=== PATIENT | female | born 1995 | race Caucasian/White ===

== ENCOUNTER 2016-07-11 11:28 | Outpatient (CLI) | payer MEDICAID ==
[~2016-07-11] VITALS: Ht 162.6 cm; Wt 96.8 kg
[~2016-07-11 11:28] MED LIST: AMOXICILLIN 8751 TAB PO; CLARITIN 1010 MG/TAB PO; FLAGYL500 MG PO; NORCO 325 MG-51 TAB PO; PERCOCET 325 MG1 TA3 PO; PRENATAL; SINGULAIR 110 MG/TAB PO
[2016-07-11 11:44] VITALS: BP 130/84; PULSE 78; TEMP 98
[2016-07-11] MEDS ORDERED: VENTOLIN0.09 MG IH (11:50)
[2016-07-11 12:00] VITALS: BP 130/84; PULSE 78
[2016-07-11 13:07] VITALS: BP 131/78; PULSE 98
[2016-07-11 14:03] VITALS: BP 127/79; PULSE 94
== END 2016-07-11 14:20 | disposition home or self-care (01) ==
LOC: LDRO 11:28
DX: O47.1 False labor at or after 37 completed weeks of gestation (principal); Z3A.38 38 weeks gestation of pregnancy; O99.213 Obesity complicating pregnancy, third trimester; O24.419 Gestational diabetes mellitus in pregnancy, unspecified control; Z87.891 Personal history of nicotine dependence

== ENCOUNTER 2016-07-12 06:27 | Inpatient (IN) | payer MEDICAID ==
[~2016-07-12] VITALS: Ht 162.6 cm; Wt 96.8 kg
[2016-07-12] VITALS (24 sets, daily range): BP systolic 106–147; BP diastolic 56–87; PULSE 67–104; TEMP 97.6–98.1
[~2016-07-12 06:27] MED LIST changes: +VENTOLIN0.09 MG IH
[2016-07-12 08:04] LABS: BASO % 0.2 % (0.0-2.0); EOS % 0.2 % (0-4.0); GRAN # 6.5 (1.4-6.5); GRAN % 75.1 % (42.2-75.2); HEMATOCRIT 37.2 % (37.0-47.0); HEMOGLOBIN 12.1 g/dl (12.5-16.0); LYMPH # 1.4 (1.2-3.4); LYMPH % 16.6 % (20.0-51.0); MEAN CELL VOLUME 91 fl (80.0-100.0); MEAN CORPUSCULAR HEMOGLOBIN 29 pg (27.0-31.0); MEAN CORPUSCULAR HGB CONC 33 g/dl (33.0-37.0); MONO # 0.6 (0.1-0.6); MONO % 7.4 % (1.7-9.3); PLATELET COUNT 193 K/mm3 (130-400); RED BLOOD COUNT 4.11 M/mm3 (4.10-5.30); REDCELL DISTRIBUTION WIDTH-CV 13.1 % (11.5-14.5); WHITE BLOOD COUNT 8.7 K/mm3 (4.8-10.8)
[2016-07-13 07:51] LABS: HEMATOCRIT 34.9 % (37.0-47.0); HEMOGLOBIN 11.2 g/dl (12.5-16.0)
[2016-07-13 09:00] VITALS: BP 109/56; PULSE 71; TEMP 97.6
[2016-07-13] MEDS ORDERED: IBU600 MG PO (09:20)
[2016-07-13] MEDS ORDERED: PERCOCET 325 MG1 TA2 PO (09:20)
[2016-07-13 12:32] VITALS: BP 117/81; PULSE 67; TEMP 97.4
== END 2016-07-13 15:15 | disposition home or self-care (01) | DRG 775 ==
LOC: LDRO 06:27 → LDR 06:48 → OB 14:20
PROVIDERS: Obstetrics & Gynecology
PROC: 10E0XZZ Delivery of Products of Conception, External Approach (ICD-10-PCS; principal; 2016-07-12)
PROC: 0KQM0ZZ Repair Perineum Muscle, Open Approach (ICD-10-PCS; 2016-07-12)
DX: O24.420 Gestational diabetes mellitus in childbirth, diet controlled (principal); O70.1 Second degree perineal laceration during delivery; Z3A.38 38 weeks gestation of pregnancy; Z37.0 Single live birth; Z23 Encounter for immunization
CPT/HCPCS: J2590; J7120

== ENCOUNTER → 2016-07-16 | Outpatient (CLI) | payer MEDICAID ==
[~2016-07-16] MED LIST changes: +CEFTIN500 MG PO; +IBU600 MG PO; +PERCOCET 325 MG1 TA2 PO
== END ==
LOC: LAC 10:11
DX: Z39.1 Encounter for care and examination of lactating mother (principal); Z71.89 Other specified counseling

== ENCOUNTER 2016-07-17 19:39 | Emergency (ER) | payer MEDICAID ==
[~2016-07-17] VITALS: Ht 162.6 cm; Wt 91.3 kg
[~2016-07-17 19:39] MED LIST changes: -CEFTIN500 MG PO
[2016-07-17 19:43] VITALS: BP 144/96; PULSE 75; TEMP 98
== END 2016-07-17 20:25 | disposition home or self-care (01) ==
LOC: COL.ER 19:39
DX: H10.89 Other conjunctivitis (principal); B99.9 Unspecified infectious disease

== ENCOUNTER 2017-03-21 18:06 | Emergency (ER) | payer MEDICAID ==
[~2017-03-21] VITALS: Ht 162.6 cm; Wt 85.0 kg
[2017-03-21 18:07] VITALS: BP 144/82; TEMP 98.9
[2017-03-21 19:01] LABS: PH 7 (5-8); SQUAMOUS EPITHELIAL 0-2 /hpf; URINE APPEARANCE Turbid; URINE BACTERIA Rare /hpf; URINE BILIRUBIN Negative (NEGATIVE); URINE BLOOD Negative (NEGATIVE); URINE COLOR Yellow; URINE GLUCOSE Negative (NEGATIVE); URINE KETONE Negative (NEGATIVE); URINE UROBILINOGEN Negative (NEGATIVE); URINE WBC >50 /hpf
[2017-03-21] MEDS ORDERED: CEFTIN500 MG PO (19:25)
[2017-03-21 19:39] VITALS: PULSE 68
== END 2017-03-21 19:40 | disposition home or self-care (01) ==
LOC: COL.ER 18:06
PROVIDERS: Nurse Practitioner
DX: N39.0 Urinary tract infection, site not specified (principal); B96.20 Unspecified Escherichia coli [E. coli] as the cause of diseases classified elsewhere; F17.210 Nicotine dependence, cigarettes, uncomplicated; Z87.440 Personal history of urinary (tract) infections

== ENCOUNTER 2017-06-02 09:47 | Emergency (ER) | payer MEDICAID ==
[~2017-06-02] VITALS: Ht 162.6 cm; Wt 81.8 kg
[~2017-06-02 09:47] MED LIST changes: +CEFTIN500 MG PO
[2017-06-02 09:53] VITALS: BP 142/81; PULSE 87; TEMP 98
[2017-06-02 10:40] LABS: COLLECTION METHOD CLEAN CATCH
[2017-06-02 10:54] LABS: PH 7 (5-8); SQUAMOUS EPITHELIAL 0-2 /hpf; URINE APPEARANCE Cloudy; URINE BACTERIA None Seen /hpf; URINE BILIRUBIN Negative (NEGATIVE); URINE BLOOD 2+ (NEGATIVE); URINE COLOR Yellow; URINE GLUCOSE Negative (NEGATIVE); URINE KETONE Negative (NEGATIVE); URINE LEUKOCYTE ESTERASE 3+ (NEGATIVE); URINE PROTEIN(semi-quant) 2+ (NEGATIVE); URINE RBC >50 /hpf; URINE UROBILINOGEN Negative (NEGATIVE)
[2017-06-02 10:56] LABS: URINE WBC >50 /hpf
[2017-06-02] MEDS ORDERED: MACROBID 1100 MG/CAP PO (11:01)
[2017-06-02] MEDS ORDERED: DIFLUCAN150 MG PO (11:02)
== END 2017-06-02 12:00 | disposition home or self-care (01) ==
LOC: COL.ER 09:47
PROVIDERS: Nurse Practitioner Primary Care
DX: N39.0 Urinary tract infection, site not specified (principal); J45.909 Unspecified asthma, uncomplicated; F17.210 Nicotine dependence, cigarettes, uncomplicated

== ENCOUNTER 2017-06-25 22:15 | Emergency (ER) | payer MEDICAID ==
[~2017-06-25] VITALS: Ht 162.6 cm; Wt 81.8 kg
[~2017-06-25 22:15] MED LIST changes: +DIFLUCAN150 MG PO; +MACROBID 1100 MG/CAP PO
[2017-06-25 22:18] VITALS: BP 141/74
[2017-06-25] MEDS ORDERED: PRENATAL (22:21)
[2017-06-25 22:44] LABS: COLLECTION METHOD CLEAN CATCH
[2017-06-25 22:51] LABS: MUCOUS Present /lpf; PH 6 (5-8); SQUAMOUS EPITHELIAL 0-2 /hpf; URINE APPEARANCE Clear; URINE BACTERIA None Seen /hpf; URINE BILIRUBIN Negative (NEGATIVE); URINE BLOOD 3+ (NEGATIVE); URINE COLOR Yellow; URINE GLUCOSE Negative (NEGATIVE); URINE KETONE Negative (NEGATIVE); URINE LEUKOCYTE ESTERASE Negative (NEGATIVE); URINE PROTEIN(semi-quant) Negative (NEGATIVE); URINE RBC >50 /hpf; URINE UROBILINOGEN Negative (NEGATIVE)
[2017-06-25 23:24] LABS: BASO # 0.1 (0.0-0.2); BASO % 0.7 % (0.0-2.0); EOS # 0.3 (0.0-0.7); EOS % 2.5 % (0-4.0); GRAN # 6.5 (1.4-6.5); GRAN % 60.9 % (42.2-75.2); HEMATOCRIT 36.5 % (37.0-47.0); HEMOGLOBIN 11.9 g/dl (12.5-16.0); LYMPH # 3.1 (1.2-3.4); LYMPH % 29.3 % (20.0-51.0); MEAN CELL VOLUME 95 fl (80.0-100.0); MEAN CORPUSCULAR HEMOGLOBIN 31 pg (27.0-31.0); MEAN CORPUSCULAR HGB CONC 33 g/dl (33.0-37.0); MONO # 0.7 (0.1-0.6); MONO % 6.2 % (1.7-9.3); PLATELET COUNT 269 K/mm3 (130-400); RED BLOOD COUNT 3.83 M/mm3 (4.10-5.30); WHITE BLOOD COUNT 10.7 K/mm3 (4.8-10.8)
[2017-06-25 23:37] LABS: ADJUSTED CALCIUM 8.9 mg/dL (8.4-10.2); ALANINE AMINOTRANSFERASE 32 U/L (9-52); ALBUMIN 4.4 gm/dL (3.5-5.0); ALKALINE PHOSPHATASE 57 U/L (50-136); ANION GAP 10 mmol/L (7-16); BILIRUBIN,TOTAL 0.4 mg/dL (0.0-1.0); BLOOD UREA NITROGEN 13 mg/dL (7-17); CALCIUM 9.2 mg/dL (8.4-10.2); CARBON DIOXIDE 26 mmol/L (22-30); CHLORIDE 105 mmol/L (98-107); CREATININE, serum 0.81 mg/dL (0.52-1.25); GLUCOSE 119 mg/dL (74-106); POTASSIUM 3.3 mmol/L (3.4-5.0); SODIUM 141 mmol/L (137-145); TOTAL PROTEIN 7.2 gm/dL (6.4-8.2)
[2017-06-25 23:38] LABS: C-REACTIVE PROTEIN < 0.5 mg/dL (0.0-0.9)
[2017-06-25 23:51] LABS: HCG,QUANTITATIVE 12 mIU/mL (0-5)
[2017-06-26 00:27] VITALS: PULSE 66; TEMP 98
== END 2017-06-26 00:32 | disposition home or self-care (01) ==
LOC: COL.ER 22:15
PROVIDERS: Nurse Practitioner
DX: O03.9 Complete or unspecified spontaneous abortion without complication (principal); J45.909 Unspecified asthma, uncomplicated; F17.210 Nicotine dependence, cigarettes, uncomplicated
CPT/HCPCS: J1170; J7030

== ENCOUNTER 2017-07-29 01:30 | Emergency (ER) | payer MEDICAID ==
[~2017-07-29] VITALS: Ht 162.6 cm; Wt 86.4 kg
[2017-07-29 01:36] VITALS: TEMP 97.9
[2017-07-29 02:06] LABS: COLLECTION METHOD CLEAN CATCH
[2017-07-29 02:12] LABS: MUCOUS Present /lpf; PH 5 (5-8); SQUAMOUS EPITHELIAL 0-2 /hpf; URINE APPEARANCE Clear; URINE BACTERIA Rare /hpf; URINE BILIRUBIN Negative (NEGATIVE); URINE BLOOD 2+ (NEGATIVE); URINE COLOR Amber; URINE GLUCOSE Negative (NEGATIVE); URINE KETONE Negative (NEGATIVE); URINE LEUKOCYTE ESTERASE Trace (NEGATIVE); URINE NITRATE Positive (NEGATIVE); URINE PROTEIN(semi-quant) Negative (NEGATIVE); URINE UROBILINOGEN >=4.0 mg/dL (NEGATIVE)
[2017-07-29] MEDS ORDERED: PYRIDIUM 100MG100 MG PO (02:15)
[2017-07-29 03:09] LABS: BASO # 0.1 (0.0-0.2); BASO % 0.8 % (0.0-2.0); EOS # 0.5 (0.0-0.7); EOS % 4.8 % (0-4.0); LYMPH # 2.8 (1.2-3.4); LYMPH % 27.5 % (20.0-51.0); MEAN CELL VOLUME 95 fl (80.0-100.0); MEAN CORPUSCULAR HGB CONC 32 g/dl (33.0-37.0); MEAN PLATELET VOLUME 10.7 fl (7.4-10.4); MONO # 0.8 (0.1-0.6); MONO % 7.6 % (1.7-9.3); PLATELET COUNT 245 K/mm3 (130-400); RED BLOOD COUNT 3.72 M/mm3 (4.10-5.30); REDCELL DISTRIBUTION WIDTH-CV 12.5 % (11.5-14.5)
[2017-07-29] MEDS ORDERED: NORCO 325 MG-51 TAB PO (03:11)
[2017-07-29] MEDS ORDERED: CEFTIN 250250 MG/TAB PO (03:11)
[2017-07-29 03:15] LABS: HEMATOCRIT 35.5 % (37.0-47.0); HEMOGLOBIN 11.4 g/dl (12.5-16.0); MEAN CORPUSCULAR HEMOGLOBIN 31 pg (27.0-31.0)
[2017-07-29 03:25] LABS: ALBUMIN 4.1 gm/dL (3.5-5.0); BILIRUBIN,TOTAL 0.1 mg/dL (0.0-1.0); CALCIUM 8.9 mg/dL (8.4-10.2); CREATININE, serum 0.69 mg/dL (0.52-1.25); POTASSIUM 3.5 mmol/L (3.4-5.0); TOTAL PROTEIN 6.8 gm/dL (6.4-8.2)
[2017-07-29 07:18] VITALS: BP 101/58; PULSE 66
== END 2017-07-29 07:20 | disposition home or self-care (01) ==
LOC: COL.ER 01:30
PROVIDERS: Emergency Medicine; Nurse Practitioner
DX: O08.83 Urinary tract infection following an ectopic and molar pregnancy (principal); N12 Tubulo-interstitial nephritis, not specified as acute or chronic; O00.109 Unspecified tubal pregnancy without intrauterine pregnancy; F17.210 Nicotine dependence, cigarettes, uncomplicated
CPT/HCPCS: J0696; J1170; J2405; J7030

== ENCOUNTER 2017-08-20 05:23 | Emergency (ER) | payer MEDICAID ==
[~2017-08-20] VITALS: Ht 162.6 cm; Wt 85.9 kg
[~2017-08-20 05:23] MED LIST changes: +CEFTIN 250250 MG/TAB PO; +PYRIDIUM 100MG100 MG PO
[2017-08-20 05:29] VITALS: BP 128/86; TEMP 97.5
[2017-08-20] MEDS ORDERED: PROAIR HFA0.09 MG/AC IH (05:34)
[2017-08-20 05:52] LABS: COLLECTION METHOD CLEAN CATCH
[2017-08-20 06:07] LABS: PH 5 (5-8); URINE APPEARANCE Hazy; URINE BILIRUBIN Negative (NEGATIVE); URINE BLOOD 3+ (NEGATIVE); URINE COLOR Amber; URINE GLUCOSE Negative (NEGATIVE); URINE KETONE Trace (NEGATIVE); URINE LEUKOCYTE ESTERASE 1+ (NEGATIVE); URINE NITRATE Positive (NEGATIVE); URINE PROTEIN(semi-quant) 2+ (NEGATIVE); URINE UROBILINOGEN >=4.0 mg/dL (NEGATIVE)
[2017-08-20 06:12] LABS: AMORPHOUS CRYSTAL Present /uL; MUCOUS Present /lpf
[2017-08-20 06:13] LABS: URINE BACTERIA Many /hpf
[2017-08-20] MEDS ORDERED: PYRIDIUM200 M1 PO (06:51)
[2017-08-20] MEDS ORDERED: CIPRO 500MG TA500 MG PO (06:51)
[2017-08-20 07:05] VITALS: PULSE 82
[2017-08-21] MEDS ORDERED: PYRIDIUM200 M1 PO (13:22)
== END 2017-08-20 07:16 | disposition home or self-care (01) ==
LOC: COL.ER 05:23
PROVIDERS: Emergency Medicine
DX: N39.0 Urinary tract infection, site not specified (principal)

== ENCOUNTER 2017-08-21 08:45 | Emergency (ER) | payer MEDICAID ==
[~2017-08-21] VITALS: Ht 162.6 cm; Wt 81.8 kg
[~2017-08-21 08:45] MED LIST changes: +CIPRO 500MG TA500 MG PO; +PROAIR HFA0.09 MG/AC IH; +PYRIDIUM200 M1 PO
[2017-08-21 10:54] LABS: BASO # 0.1 (0.0-0.2); BASO % 0.9 % (0.0-2.0); EOS # 0.4 (0.0-0.7); EOS % 5.2 % (0-4.0); GRAN # 4.7 (1.4-6.5); GRAN % 61.5 % (42.2-75.2); HEMATOCRIT 38.3 % (37.0-47.0); HEMOGLOBIN 12.3 g/dl (12.5-16.0); LYMPH # 1.9 (1.2-3.4); LYMPH % 24.9 % (20.0-51.0); MEAN CELL VOLUME 95 fl (80.0-100.0); MEAN CORPUSCULAR HEMOGLOBIN 31 pg (27.0-31.0); MEAN CORPUSCULAR HGB CONC 32 g/dl (33.0-37.0); MEAN PLATELET VOLUME 11.2 fl (7.4-10.4); MONO # 0.6 (0.1-0.6); MONO % 7.2 % (1.7-9.3); PLATELET COUNT 217 K/mm3 (130-400); RED BLOOD COUNT 4.02 M/mm3 (4.10-5.30); REDCELL DISTRIBUTION WIDTH-CV 12.7 % (11.5-14.5)
[2017-08-21 11:08] LABS: ALANINE AMINOTRANSFERASE 30 U/L (9-52); ALBUMIN 4.1 gm/dL (3.5-5.0); ALKALINE PHOSPHATASE 55 U/L (50-136); ANION GAP 7 mmol/L (7-16); AST,SGOT 19 U/L (15-37); BILIRUBIN,TOTAL 0.4 mg/dL (0.0-1.0); BLOOD UREA NITROGEN 10 mg/dL (7-17); CALCIUM 8.9 mg/dL (8.4-10.2); CARBON DIOXIDE 25 mmol/L (22-30); CHLORIDE 107 mmol/L (98-107); CREATININE, serum 0.71 mg/dL (0.52-1.25); GLUCOSE 99 mg/dL (74-106); POTASSIUM 4.2 mmol/L (3.4-5.0); SODIUM 139 mmol/L (137-145); TOTAL PROTEIN 6.8 gm/dL (6.4-8.2)
[2017-08-21 11:11] LABS: C-REACTIVE PROTEIN < 0.5 mg/dL (0.0-0.9)
[2017-08-21 11:13] LABS: COLLECTION METHOD CLEAN CATCH
[2017-08-21 11:25] LABS: MUCOUS Present /lpf; PH 5 (5-8); URINE APPEARANCE Clear; URINE BACTERIA Rare /hpf; URINE BILIRUBIN Negative (NEGATIVE); URINE BLOOD Negative (NEGATIVE); URINE COLOR Amber; URINE GLUCOSE Negative (NEGATIVE); URINE KETONE Negative (NEGATIVE); URINE LEUKOCYTE ESTERASE Negative (NEGATIVE); URINE NITRATE Positive (NEGATIVE); URINE PROTEIN(semi-quant) Negative (NEGATIVE); URINE UROBILINOGEN >=4.0 mg/dL (NEGATIVE)
[2017-08-21] MEDS ORDERED: PYRIDIUM200 M1 PO (13:22)
[2017-08-21 13:29] VITALS: BP 105/73; PULSE 60; TEMP 98.9
== END 2017-08-21 13:35 | disposition other institution (70) ==
LOC: COL.ER 08:45
PROVIDERS: Physician Assistant
DX: R06.00 Dyspnea, unspecified (principal); J45.909 Unspecified asthma, uncomplicated
CPT/HCPCS: J1170; J2405; J7030; Q9967

== ENCOUNTER 2018-03-07 17:05 | Day surgery (SDC) | payer MEDICAID ==
[2018-03-07] VITALS (8 sets, daily range): BP systolic 103–130; BP diastolic 60–81; PULSE 51–70; TEMP 98.2–98.5
[~2018-03-07] VITALS: Ht 162.6 cm; Wt 83.9 kg
[2018-03-07] MEDS ORDERED: PRENATAL VITAMI1 T12 PO (17:15)
[2018-03-07] MEDS ORDERED: ZYRTEC ALLERGY10 MG PO (17:15)
[2018-03-07 17:42] LABS: BASO # 0.1 (0.0-0.2); BASO % 0.6 % (0.0-2.0); EOS # 0.3 (0.0-0.7); EOS % 3.4 % (0-4.0); GRAN # 5.8 (1.4-6.5); GRAN % 63.8 % (42.2-75.2); HEMATOCRIT 31.6 % (37.0-47.0); HEMOGLOBIN 10.5 g/dl (12.5-16.0); LYMPH # 2.2 (1.2-3.4); MEAN CELL VOLUME 93 fl (80.0-100.0); MEAN CORPUSCULAR HEMOGLOBIN 31 pg (27.0-31.0); MEAN CORPUSCULAR HGB CONC 33 g/dl (33.0-37.0); MEAN PLATELET VOLUME 10.6 fl (7.4-10.4); MONO # 0.7 (0.1-0.6); MONO % 7.9 % (1.7-9.3); PLATELET COUNT 221 K/mm3 (130-400); RED BLOOD COUNT 3.41 M/mm3 (4.10-5.30); REDCELL DISTRIBUTION WIDTH-CV 12.6 % (11.5-14.5)
[2018-03-07] MEDS ORDERED: PERCOCET 325 MG1 TA2 PO (18:15)
[2018-03-07] MEDS ORDERED: MONODOX100 PO (18:15)
[2018-03-07] MEDS ORDERED: MOTRIN 800800 MG/TAB PO (18:15)
== END 2018-03-07 20:26 | disposition home or self-care (01) ==
LOC: SDCO 17:05
PROVIDERS: Obstetrics & Gynecology
DX: N99.820 Postprocedural hemorrhage of a genitourinary system organ or structure following a genitourinary system procedure (principal); J45.909 Unspecified asthma, uncomplicated; F17.210 Nicotine dependence, cigarettes, uncomplicated
CPT/HCPCS: J1885; J2210; J2250; J2405; J2704; J3010; J7120

== ENCOUNTER → 2018-06-25 | Outpatient (CLI) | payer MEDICAID ==
[~2018-06-25] MED LIST changes: +MONODOX100 PO; +MOTRIN 800800 MG/TAB PO; +PRENATAL VITAMI1 T12 PO; +ZYRTEC ALLERGY10 MG PO
== END ==
LOC: COL.RAD 10:30
DX: M21.42 Flat foot [pes planus] (acquired), left foot (principal)
CPT/HCPCS: J3301; Q9967

== ENCOUNTER 2018-10-30 21:48 | Emergency (ER) | payer MEDICAID ==
[~2018-10-30] VITALS: Ht 162.6 cm; Wt 81.8 kg
[2018-10-30 21:52] VITALS: TEMP 99.1
[2018-10-30 22:28] LABS: BASO # 0.1 (0.0-0.2); BASO % 0.5 % (0.0-2.0); EOS # 0.2 (0.0-0.7); GRAN # 14.3 (1.4-6.5); GRAN % 82.6 % (42.2-75.2); HEMATOCRIT 39.6 % (37.0-47.0); HEMOGLOBIN 12.9 g/dl (12.5-16.0); LYMPH # 1.6 (1.2-3.4); LYMPH % 9.2 % (20.0-51.0); MEAN CELL VOLUME 94 fl (80.0-100.0); MEAN CORPUSCULAR HEMOGLOBIN 31 pg (27.0-31.0); MEAN CORPUSCULAR HGB CONC 33 g/dl (33.0-37.0); MEAN PLATELET VOLUME 11.3 fl (7.4-10.4); MONO # 1.1 (0.1-0.6); MONO % 6.2 % (1.7-9.3); PLATELET COUNT 209 K/mm3 (130-400); RED BLOOD COUNT 4.22 M/mm3 (4.10-5.30); REDCELL DISTRIBUTION WIDTH-CV 12.4 % (11.5-14.5)
[2018-10-30] MEDS ORDERED: SINGULAIR 110 MG/TAB PO (22:32)
[2018-10-30 22:39] LABS: COLLECTION METHOD CLEAN CATCH
[2018-10-30 22:43] LABS: ALBUMIN 4.4 gm/dL (3.5-5.0); BILIRUBIN,TOTAL 0.6 mg/dL (0.0-1.0); C-REACTIVE PROTEIN 3.4 mg/dL (0.0-0.9); CALCIUM 9.4 mg/dL (8.4-10.2); CREATININE, serum 0.71 (0.52-1.25); TOTAL PROTEIN 7.7 gm/dL (6.4-8.2)
[2018-10-30 23:18] LABS: AMORPHOUS CRYSTAL Present /uL; MUCOUS Present /lpf; PH 8 (5-8); URINE APPEARANCE Hazy; URINE BACTERIA Rare /hpf; URINE BILIRUBIN Negative (NEGATIVE); URINE BLOOD 1+ (NEGATIVE); URINE COLOR Yellow; URINE GLUCOSE Negative (NEGATIVE); URINE KETONE Negative (NEGATIVE); URINE LEUKOCYTE ESTERASE 1+ (NEGATIVE); URINE NITRATE Negative (NEGATIVE); URINE PROTEIN(semi-quant) Negative (NEGATIVE); URINE RBC 0-2 /hpf; URINE UROBILINOGEN Negative (NEGATIVE)
[2018-10-31] MEDS ORDERED: DOXYCYCLINE HY100 MG PO (03:22)
[2018-10-31] MEDS ORDERED: ZOFRAN ODT4 MG PO (03:22)
[2018-10-31] MEDS ORDERED: FLAGYL500 MG PO (03:22)
[2018-10-31 03:50] VITALS: BP 94/50; PULSE 74
== END 2018-10-31 03:52 | disposition home or self-care (01) ==
LOC: COL.ER 21:48
PROVIDERS: Emergency Medicine; Physician Assistant
DX: N39.0 Urinary tract infection, site not specified (principal); N76.0 Acute vaginitis; B96.89 Other specified bacterial agents as the cause of diseases classified elsewhere; F17.210 Nicotine dependence, cigarettes, uncomplicated
CPT/HCPCS: J0696; J1885; J2405; J3010; J7030; Q9967

== ENCOUNTER 2018-12-21 16:25 | Emergency (ER) | payer SELFPAY ==
[~2018-12-21] VITALS: Ht 162.6 cm; Wt 81.8 kg
[~2018-12-21 16:25] MED LIST changes: +CEPHALEXIN500 M1; +DOXYCYCLINE HY100 MG PO; +FLAGYL 250250 MG/TAB; +ZOFRAN ODT4 MG PO
[2018-12-21 16:29] VITALS: BP 116/61; TEMP 98.4
[2018-12-21 16:54] LABS: COLLECTION METHOD CLEAN CATCH
[2018-12-21] MEDS ORDERED: ZYRTEC 10MG10 MG (16:54)
[2018-12-21 17:02] LABS: PH 6 (5-8); SQUAMOUS EPITHELIAL 0-2 /hpf; URINE APPEARANCE Clear; URINE BACTERIA None Seen /hpf; URINE BILIRUBIN Negative (NEGATIVE); URINE BLOOD Negative (NEGATIVE); URINE COLOR Yellow; URINE GLUCOSE Negative (NEGATIVE); URINE KETONE Negative (NEGATIVE); URINE LEUKOCYTE ESTERASE Trace (NEGATIVE); URINE NITRATE Negative (NEGATIVE); URINE PROTEIN(semi-quant) Negative (NEGATIVE); URINE RBC 0-2 /hpf; URINE UROBILINOGEN Negative (NEGATIVE)
[2018-12-21] MEDS ORDERED: CEPHALEXIN500 M1 PO (17:08)
[2018-12-21 17:20] VITALS: PULSE 84
== END 2018-12-21 17:21 | disposition home or self-care (01) ==
LOC: COL.ER 16:25
PROVIDERS: Nurse Practitioner
DX: N39.0 Urinary tract infection, site not specified (principal); J45.909 Unspecified asthma, uncomplicated; F17.210 Nicotine dependence, cigarettes, uncomplicated

== ENCOUNTER 2019-02-08 05:45 | Emergency (ER) | payer SELFPAY ==
[~2019-02-08] VITALS: Ht 162.6 cm; Wt 77.1 kg
[~2019-02-08 05:45] MED LIST changes: +CEPHALEXIN500 M1 PO; +ZYRTEC 10MG10 MG
[2019-02-08 06:03] VITALS: TEMP 98.8
[2019-02-08 06:30] LABS: COLLECTION METHOD CLEAN CATCH
[2019-02-08 06:40] LABS: MUCOUS Present /lpf; PH 6 (5-8); SQUAMOUS EPITHELIAL None Seen /hpf; URINE APPEARANCE Cloudy; URINE BACTERIA None Seen /hpf; URINE BILIRUBIN Negative (NEGATIVE); URINE BLOOD 3+ (NEGATIVE); URINE COLOR Yellow; URINE GLUCOSE Negative (NEGATIVE); URINE KETONE Negative (NEGATIVE); URINE LEUKOCYTE ESTERASE 2+ (NEGATIVE); URINE NITRATE Negative (NEGATIVE); URINE PROTEIN(semi-quant) 2+ (NEGATIVE); URINE RBC >50 /hpf
[2019-02-08] MEDS ORDERED: CEPHALEXIN500 M1 PO (06:48)
[2019-02-08 07:02] VITALS: BP 102/66; PULSE 66
== END 2019-02-08 07:05 | disposition home or self-care (01) ==
LOC: COL.ER 05:45
PROVIDERS: Emergency Medicine
DX: N12 Tubulo-interstitial nephritis, not specified as acute or chronic (principal); N39.0 Urinary tract infection, site not specified; J45.909 Unspecified asthma, uncomplicated; F17.210 Nicotine dependence, cigarettes, uncomplicated

== ENCOUNTER 2019-02-25 16:46 | Emergency (ER) | payer SELFPAY ==
[~2019-02-25] VITALS: Ht 162.6 cm; Wt 77.3 kg
[2019-02-25 16:54] VITALS: BP 124/74; TEMP 98.2
[2019-02-25 17:13] LABS: COLLECTION METHOD CLEAN CATCH
[2019-02-25 17:20] LABS: MUCOUS Present /lpf; PH 6 (5-8); URINE APPEARANCE Clear; URINE BACTERIA Rare /hpf; URINE BILIRUBIN Negative (NEGATIVE); URINE BLOOD Negative (NEGATIVE); URINE COLOR Yellow; URINE GLUCOSE Negative (NEGATIVE); URINE KETONE Negative (NEGATIVE); URINE LEUKOCYTE ESTERASE Negative (NEGATIVE); URINE NITRATE Negative (NEGATIVE); URINE PROTEIN(semi-quant) Negative (NEGATIVE); URINE RBC 0-2 /hpf; URINE UROBILINOGEN Negative (NEGATIVE)
[2019-02-25 17:47] LABS: BASO # 0.1 (0.0-0.2); BASO % 0.8 % (0.0-2.0); EOS # 0.2 (0.0-0.7); GRAN # 7.1 (1.4-6.5); GRAN % 66.8 % (42.2-75.2); HEMATOCRIT 45.4 % (37.0-47.0); HEMOGLOBIN 14.3 g/dl (12.5-16.0); LYMPH # 2.4 (1.2-3.4); LYMPH % 22.4 % (20.0-51.0); MEAN CELL VOLUME 99 fl (80.0-100.0); MEAN CORPUSCULAR HEMOGLOBIN 31 pg (27.0-31.0); MEAN CORPUSCULAR HGB CONC 32 g/dl (33.0-37.0); MEAN PLATELET VOLUME 11.2 fl (7.4-10.4); MONO # 0.8 (0.1-0.6); MONO % 7.7 % (1.7-9.3); PLATELET COUNT 255 K/mm3 (130-400); REDCELL DISTRIBUTION WIDTH-CV 13.2 % (11.5-14.5)
[2019-02-25 18:04] LABS: ALANINE AMINOTRANSFERASE 12 U/L (9-52); ALBUMIN 4.4 gm/dL (3.5-5.0); ALKALINE PHOSPHATASE 75 U/L (50-136); ANION GAP 13 mmol/L (7-16); AST,SGOT 52 U/L (15-37); BILIRUBIN,TOTAL 0.8 mg/dL (0.0-1.0); BLOOD UREA NITROGEN 14 mg/dL (7-17); C-REACTIVE PROTEIN < 0.5 mg/dL (0.0-0.9); CALCIUM 9.3 mg/dL (8.4-10.2); CARBON DIOXIDE 20 mmol/L (22-30); CHLORIDE 107 mmol/L (98-107); CREATININE, serum 0.74 (0.52-1.25); GLUCOSE 94 mg/dL (74-106); LIPASE 105 U/L (23-300); POTASSIUM 4.7 mmol/L (3.4-5.0); SODIUM 141 mmol/L (137-145); TOTAL PROTEIN 8.1 gm/dL (6.4-8.2)
[2019-02-25] MEDS ORDERED: NORCO 325 MG-51 TAB PO (19:08)
[2019-02-25 19:20] VITALS: PULSE 98
== END 2019-02-25 19:20 | disposition home or self-care (01) ==
LOC: COL.ER 16:46
PROVIDERS: Physician Assistant
DX: R10.9 Unspecified abdominal pain (principal); J45.909 Unspecified asthma, uncomplicated
CPT/HCPCS: J1885; J2270; J2405; J7030

== ENCOUNTER 2020-02-03 19:39 | Emergency (ER) | payer SELFPAY ==
[~2020-02-03] VITALS: Ht 162.6 cm; Wt 77.3 kg
[2020-02-03 20:05] VITALS: BP 146/81; PULSE 92; TEMP 99.6
[2020-02-03 20:18] LABS: COLLECTION METHOD CLEAN CATCH
[2020-02-03 20:38] LABS: PH 6 (5-8); SQUAMOUS EPITHELIAL 0-2 /hpf; URINE APPEARANCE Cloudy; URINE BACTERIA None Seen /hpf; URINE BILIRUBIN Negative (NEGATIVE); URINE BLOOD 3+ (NEGATIVE); URINE COLOR Yellow; URINE GLUCOSE Negative (NEGATIVE); URINE KETONE Negative (NEGATIVE); URINE LEUKOCYTE ESTERASE 3+ (NEGATIVE); URINE NITRATE Negative (NEGATIVE); URINE PROTEIN(semi-quant) 2+ (NEGATIVE); URINE RBC >50 /hpf; URINE UROBILINOGEN Negative (NEGATIVE)
[2020-02-03] MEDS ORDERED: CEFTIN 250250 MG/TAB PO ×2 (21:07)
[2020-02-04] MEDS ORDERED: CEFTIN 250250 MG/TAB PO (12:09)
== END 2020-02-03 21:16 | disposition home or self-care (01) ==
LOC: COL.ER 19:39
PROVIDERS: Nurse Practitioner
DX: N39.0 Urinary tract infection, site not specified (principal); F17.210 Nicotine dependence, cigarettes, uncomplicated

== ENCOUNTER 2020-02-27 09:35 | Emergency (ER) | payer SELFPAY ==
[~2020-02-27] VITALS: Ht 162.6 cm; Wt 80.0 kg
[2020-02-27 09:38] VITALS: BP 165/98; TEMP 99
[2020-02-27 10:17] LABS: COLLECTION METHOD CLEAN CATCH
[2020-02-27 10:22] LABS: BASO # 0.1 (0.0-0.2); EOS # 0.1 (0.0-0.7); EOS % 1.7 % (0-4.0); GRAN # 4.4 (1.4-6.5); GRAN % 72.8 % (42.2-75.2); HEMOGLOBIN 13.4 g/dl (12.5-16.0); LYMPH % 16.4 % (20.0-51.0); MEAN CELL VOLUME 101 fl (80.0-100.0); MEAN CORPUSCULAR HEMOGLOBIN 33 pg (27.0-31.0); MEAN CORPUSCULAR HGB CONC 33 g/dl (33.0-37.0); MONO # 0.5 (0.1-0.6); MONO % 7.9 % (1.7-9.3); PLATELET COUNT 199 K/mm3 (130-400); RED BLOOD COUNT 4.06 M/mm3 (4.10-5.30); REDCELL DISTRIBUTION WIDTH-CV 12.2 % (11.5-14.5)
[2020-02-27 10:27] LABS: PH 6 (5-8); SQUAMOUS EPITHELIAL 0-2 /hpf; URINE APPEARANCE Clear; URINE BACTERIA None Seen /hpf; URINE BILIRUBIN Negative (NEGATIVE); URINE BLOOD 2+ (NEGATIVE); URINE COLOR Straw; URINE GLUCOSE Negative (NEGATIVE); URINE KETONE Negative (NEGATIVE); URINE LEUKOCYTE ESTERASE Negative (NEGATIVE); URINE NITRATE Negative (NEGATIVE); URINE PROTEIN(semi-quant) Negative (NEGATIVE); URINE RBC 0-2 /hpf; URINE UROBILINOGEN Negative (NEGATIVE)
[2020-02-27 10:30] LABS: ALBUMIN 4.3 gm/dL (3.5-5.0); BILIRUBIN,TOTAL 0.7 mg/dL (0.0-1.0); CALCIUM 9.2 mg/dL (8.4-10.2); CREATININE, serum 0.86 (0.52-1.25); POTASSIUM 4.1 mmol/L (3.4-5.0); TOTAL PROTEIN 7.5 gm/dL (6.4-8.2)
[2020-02-27] MEDS ORDERED: PERCOCET 325 MG1 TA2 PO (13:23)
[2020-02-27 14:38] VITALS: PULSE 51
== END 2020-02-27 14:38 | disposition home or self-care (01) ==
LOC: COL.ER 09:35
PROVIDERS: Physician Assistant
DX: S06.0X0A Concussion without loss of consciousness, initial encounter (principal); S02.402A Zygomatic fracture, unspecified side, initial encounter for closed fracture; S80.02XA Contusion of left knee, initial encounter; S80.01XA Contusion of right knee, initial encounter; S63.502A Unspecified sprain of left wrist, initial encounter; J45.909 Unspecified asthma, uncomplicated; V29.9XXA Motorcycle rider (driver) (passenger) injured in unspecified traffic accident, initial encounter
CPT/HCPCS: J1170; J1885; J2270; J2405; J7030

== ENCOUNTER 2020-05-22 10:09 | Emergency (ER) | payer SELFPAY ==
[~2020-05-22] VITALS: Ht 162.6 cm; Wt 77.3 kg
[2020-05-22 10:16] VITALS: BP 147/85; TEMP 97.7
[2020-05-22 10:26] LABS: COLLECTION METHOD CLEAN CATCH
[2020-05-22 10:48] LABS: PH 7 (5-8); URINE APPEARANCE Clear; URINE BACTERIA Rare /hpf; URINE BILIRUBIN Negative (NEGATIVE); URINE BLOOD Negative (NEGATIVE); URINE COLOR Straw; URINE GLUCOSE Negative (NEGATIVE); URINE KETONE Negative (NEGATIVE); URINE LEUKOCYTE ESTERASE 2+ (NEGATIVE); URINE NITRATE Negative (NEGATIVE); URINE PROTEIN(semi-quant) Negative (NEGATIVE); URINE RBC 0-2 /hpf; URINE UROBILINOGEN Negative (NEGATIVE)
[2020-05-22] MEDS ORDERED: CEFTIN500 MG PO (11:02)
[2020-05-22 11:09] VITALS: PULSE 84
== END 2020-05-22 11:11 | disposition home or self-care (01) ==
LOC: COL.ER 10:09
PROVIDERS: Physician Assistant
DX: N39.0 Urinary tract infection, site not specified (principal); Z32.02 Encounter for pregnancy test, result negative

== ENCOUNTER 2021-01-06 10:41 | Emergency (ER) | payer SELFPAY ==
[~2021-01-06] VITALS: Ht 162.6 cm; Wt 79.1 kg
[2021-01-06 11:16] VITALS: BP 149/70; TEMP 98.7
[2021-01-06 11:33] LABS: COLLECTION METHOD CLEAN CATCH
[2021-01-06 11:47] LABS: PH 6 (5-8); SQUAMOUS EPITHELIAL None Seen /hpf; URINE APPEARANCE Cloudy; URINE BACTERIA Moderate /hpf; URINE BILIRUBIN Negative (NEGATIVE); URINE BLOOD 3+ (NEGATIVE); URINE COLOR Yellow; URINE GLUCOSE Negative (NEGATIVE); URINE KETONE Negative (NEGATIVE); URINE LEUKOCYTE ESTERASE 3+ (NEGATIVE); URINE NITRATE Positive (NEGATIVE); URINE PROTEIN(semi-quant) 2+ (NEGATIVE); URINE RBC >50 /hpf; URINE UROBILINOGEN Negative (NEGATIVE)
[2021-01-06] MEDS ORDERED: NORCO 325 MG-51 TAB PO (13:01)
[2021-01-06] MEDS ORDERED: CEFTIN 250250 MG/TAB PO (13:01)
[2021-01-06 13:07] VITALS: PULSE 86
== END 2021-01-06 13:07 | disposition home or self-care (01) ==
LOC: COL.ER 10:41
PROVIDERS: Family Medicine
DX: N39.0 Urinary tract infection, site not specified (principal); F17.290 Nicotine dependence, other tobacco product, uncomplicated; Z32.02 Encounter for pregnancy test, result negative

== ENCOUNTER 2021-03-06 11:29 | Emergency (ER) | payer SELFPAY ==
[~2021-03-06] VITALS: Ht 162.6 cm; Wt 76.4 kg
[2021-03-06 11:42] VITALS: BP 138/92; PULSE 129; TEMP 98.9
[2021-03-07] MEDS ORDERED: CARAFATE 1GM1 G PO (13:06)
[2021-03-07] MEDS ORDERED: ZOFRAN ODT4 MG PO (13:06)
[2021-03-07] MEDS ORDERED: PROTONIX 40MG T40 MG PO (13:07)
== END 2021-03-06 13:40 | disposition left against medical advice (07) ==
LOC: COL.ER 11:29
DX: Z20.822 Contact with and (suspected) exposure to COVID-19 (principal)

== ENCOUNTER 2021-03-07 11:00 | Emergency (ER) | payer SELFPAY ==
[~2021-03-07] VITALS: Ht 162.6 cm; Wt 76.4 kg
[2021-03-07 11:24] VITALS: TEMP 98.1
[2021-03-07 11:57] LABS: COLLECTION METHOD CLEAN CATCH
[2021-03-07 12:07] LABS: BASO # 0.1 (0.0-0.2); BASO % 1.1 % (0.0-2.0); EOS % 0.6 % (0-4.0); GRAN % 78.2 % (42.2-75.2); HEMATOCRIT 42.3 % (37.0-47.0); HEMOGLOBIN 14.6 g/dl (12.5-16.0); LYMPH # 0.8 (1.2-3.4); LYMPH % 12.5 % (20.0-51.0); MEAN CELL VOLUME 98 fl (80.0-100.0); MEAN CORPUSCULAR HEMOGLOBIN 34 pg (27.0-31.0); MEAN CORPUSCULAR HGB CONC 35 g/dl (33.0-37.0); MEAN PLATELET VOLUME 11.2 fl (7.4-10.4); MONO # 0.5 (0.1-0.6); MONO % 7.3 % (1.7-9.3); PLATELET COUNT 210 K/mm3 (130-400); RED BLOOD COUNT 4.33 M/mm3 (4.10-5.30); REDCELL DISTRIBUTION WIDTH-CV 11.9 % (11.5-14.5)
[2021-03-07 12:10] LABS: PH 6 (5-8); SQUAMOUS EPITHELIAL 0-2 /hpf; URINE APPEARANCE Clear; URINE BACTERIA Rare /hpf; URINE BILIRUBIN Negative (NEGATIVE); URINE BLOOD Negative (NEGATIVE); URINE COLOR Straw; URINE GLUCOSE Negative (NEGATIVE); URINE KETONE 1+ (NEGATIVE); URINE LEUKOCYTE ESTERASE Negative (NEGATIVE); URINE NITRATE Negative (NEGATIVE); URINE PROTEIN(semi-quant) Negative (NEGATIVE); URINE RBC 0-2 /hpf; URINE UROBILINOGEN Negative (NEGATIVE)
[2021-03-07 12:22] LABS: ALANINE AMINOTRANSFERASE 40 U/L (4-34); ALBUMIN 4.8 gm/dL (3.5-5.0); ALKALINE PHOSPHATASE 93 U/L (50-136); ANION GAP 10 mmol/L (7-16); AST,SGOT 44 U/L (15-37); BILIRUBIN,TOTAL 1.1 mg/dL (0.0-1.0); BLOOD UREA NITROGEN 9 mg/dL (7-17); CALCIUM 9.5 mg/dL (8.4-10.2); CARBON DIOXIDE 25 mmol/L (22-30); CHLORIDE 102 mmol/L (98-107); CREATININE, serum 0.66 (0.52-1.25); GLUCOSE 94 mg/dL (74-106); LIPASE 125 U/L (23-300); POTASSIUM 3.7 mmol/L (3.4-5.0); SODIUM 138 mmol/L (137-145)
[2021-03-07 12:25] LABS: ALCOHOL(ethanol),MEDICAL < 10 mg/dL
[2021-03-07] MEDS ORDERED: ZOFRAN ODT4 MG PO (13:06)
[2021-03-07] MEDS ORDERED: CARAFATE 1GM1 G PO (13:06)
[2021-03-07] MEDS ORDERED: PROTONIX 40MG T40 MG PO (13:07)
[2021-03-07 14:20] VITALS: BP 136/94; PULSE 70
== END 2021-03-07 14:20 | disposition home or self-care (01) ==
LOC: COL.ER 11:00
PROVIDERS: Physician Assistant
DX: K29.20 Alcoholic gastritis without bleeding (principal); F17.210 Nicotine dependence, cigarettes, uncomplicated
CPT/HCPCS: C9113; J1885; J2270; J2405; J7030

== ENCOUNTER 2021-05-12 01:13 | Emergency (ER) | payer SELFPAY ==
[~2021-05-12] VITALS: Ht 162.6 cm; Wt 76.4 kg
[~2021-05-12 01:13] MED LIST changes: +CARAFATE 1GM1 G PO; +PROTONIX 40MG T40 MG PO
[2021-05-12 01:31] VITALS: BP 138/89; PULSE 83; TEMP 98
[2021-05-12 01:57] LABS: COLLECTION METHOD CLEAN CATCH
[2021-05-12 02:06] LABS: PH 6 (5-8); SQUAMOUS EPITHELIAL 0-2 /hpf; URINE APPEARANCE Hazy; URINE BACTERIA Many /hpf; URINE BILIRUBIN Negative (NEGATIVE); URINE BLOOD 3+ (NEGATIVE); URINE COLOR Yellow; URINE GLUCOSE Negative (NEGATIVE); URINE KETONE Negative (NEGATIVE); URINE LEUKOCYTE ESTERASE 3+ (NEGATIVE); URINE NITRATE Negative (NEGATIVE); URINE PROTEIN(semi-quant) 1+ (NEGATIVE); URINE RBC 20-50 /hpf; URINE UROBILINOGEN Negative (NEGATIVE); URINE WBC >50 /hpf
[2021-05-12] MEDS ORDERED: CEFTIN500 MG PO (02:37)
[2021-05-12] MEDS ORDERED: PYRIDIUM200 M1 PO (02:37)
== END 2021-05-12 02:58 | disposition home or self-care (01) ==
LOC: COL.ER 01:13
PROVIDERS: Emergency Medicine
DX: N39.0 Urinary tract infection, site not specified (principal); J45.909 Unspecified asthma, uncomplicated

== ENCOUNTER 2021-08-19 07:32 | Emergency (ER) | payer SELFPAY ==
[~2021-08-19] VITALS: Ht 162.6 cm; Wt 73.2 kg
[2021-08-19 07:49] VITALS: TEMP 98.2
[2021-08-19 08:42] LABS: BASO # 0.1 K/mm3 (0.0-0.2); BASO % 1.1 % (0.0-2.0); EOS # 0.1 K/mm3 (0.0-0.7); EOS % 1.5 % (0.0-4.0); GRAN # 3.5 K/mm3 (1.4-6.5); GRAN % 66.9 % (42.2-75.2); HEMATOCRIT 41.7 % (37.0-47.0); LYMPH # 0.9 K/mm3 (1.2-3.4); MEAN CELL VOLUME 97 fl (80.0-100.0); MEAN CORPUSCULAR HEMOGLOBIN 33 pg (27-31); MEAN CORPUSCULAR HGB CONC 34 g/dl (33.0-37.0); MEAN PLATELET VOLUME 11.1 fl (7.4-10.4); MONO # 0.6 K/mm3 (0.1-0.6); MONO % 12.3 % (1.7-9.3); PLATELET COUNT 198 K/mm3 (130-400); REDCELL DISTRIBUTION WIDTH-CV 12.8 % (11.5-14.5)
[2021-08-19 08:44] LABS: ALANINE AMINOTRANSFERASE 28 U/L (0-55); ALBUMIN 4.3 gm/dL (3.5-5.0); ALKALINE PHOSPHATASE 60 U/L (40-150); ANION GAP 9 mmol/L (7-16); AST,SGOT 36 U/L (5-34); BLOOD UREA NITROGEN 8 mg/dL (7-19); CARBON DIOXIDE 25 mmol/L (22-29); CHLORIDE 103 mmol/L (98-107); CREATININE, serum 0.75 mg/dL (0.57-1.11); GLUCOSE 99 mg/dL (70-99); POTASSIUM 3.6 mmol/L (3.5-4.5); SODIUM 137 mmol/L (136-145); TOTAL PROTEIN 7.3 gm/dL (6.2-8.1)
[2021-08-19 08:45] LABS: INR 1.1 (0.8-3.0); PROTHROMBIN TIME 12.3 SECONDS (9.7-12.8)
[2021-08-19 08:47] LABS: PARTIAL THROMBOPLASTIN TIME 27.5 SECONDS (26.0-37.0)
[2021-08-19 08:51] LABS: TROPONIN-I < 0.010 ng/mL (0.00-0.033)
[2021-08-19 09:19] LABS: COLLECTION METHOD CLEAN CATCH
[2021-08-19 09:28] LABS: MUCOUS Present (NOT PRESENT); PH 6 (5-8); URINE APPEARANCE Hazy (CLEAR/HAZY); URINE BILIRUBIN Negative (NEGATIVE); URINE BLOOD Negative (NEGATIVE); URINE COLOR Yellow (YELLOW); URINE GLUCOSE Negative (NEGATIVE); URINE KETONE Negative (NEGATIVE); URINE LEUKOCYTE ESTERASE Negative (NEGATIVE); URINE NITRATE Negative (NEGATIVE); URINE PROTEIN(semi-quant) Negative (NEGATIVE); URINE RBC 0-2 /hpf (0-2); URINE UROBILINOGEN Negative (NEGATIVE)
[2021-08-19 09:33] LABS: URINE BACTERIA Rare /hpf (NONE SEEN)
[2021-08-19] MEDS ORDERED: PRILOSEC 20MG20 MG PO (10:30)
[2021-08-19 11:00] VITALS: BP 124/73; PULSE 83
== END 2021-08-19 11:00 | disposition home or self-care (01) ==
LOC: COL.ER 07:32
PROVIDERS: Family Medicine
DX: R07.89 Other chest pain (principal); J45.909 Unspecified asthma, uncomplicated; Z20.822 Contact with and (suspected) exposure to COVID-19
CPT/HCPCS: J1885; J7120

== ENCOUNTER 2022-11-03 18:24 | Emergency (ER) | payer SELFPAY ==
[~2022-11-03] VITALS: Ht 162.6 cm; Wt 68.2 kg
[~2022-11-03 18:24] MED LIST changes: +PRILOSEC 20MG20 MG PO
[2022-11-03 18:32] VITALS: TEMP 97.4
[2022-11-03 19:20] VITALS: BP 132/81; PULSE 80
== END 2022-11-03 19:25 | disposition home or self-care (01) ==
LOC: COL.ER 18:24
DX: K62.89 Other specified diseases of anus and rectum (principal); Z87.19 Personal history of other diseases of the digestive system; Z28.310 Unvaccinated for COVID-19

== ENCOUNTER 2024-01-27 15:30 | Emergency (ER) | payer SELFPAY ==
[~2024-01-27] VITALS: Ht 162.6 cm; Wt 70.5 kg
[2024-01-27 15:36] VITALS: TEMP 98.2
[2024-01-27 17:37] LABS: BASO # 0.1 K/mm3 (0.0-0.2); BASO % 0.7 % (0.0-2.0); EOS # 0.1 K/mm3 (0.0-0.7); EOS % 0.7 % (0.0-4.0); GRAN # 7.4 K/mm3 (1.4-6.5); GRAN % 76.4 % (42.2-75.2); HEMOGLOBIN 12.4 g/dl (12.5-16.0); LYMPH # 1.4 K/mm3 (1.2-3.4); LYMPH % 14.7 % (20.0-51.0); MEAN CELL VOLUME 98 fl (80.0-100.0); MEAN CORPUSCULAR HEMOGLOBIN 32 pg (27-31); MEAN CORPUSCULAR HGB CONC 33 g/dl (33.0-37.0); MEAN PLATELET VOLUME 11.1 fl (7.4-10.4); MONO # 0.7 K/mm3 (0.1-0.6); MONO % 7.2 % (1.7-9.3); PLATELET COUNT 236 K/mm3 (130-400); RED BLOOD COUNT 3.88 M/mm3 (4.10-5.30); REDCELL DISTRIBUTION WIDTH-CV 11.8 % (11.5-14.5)
[2024-01-27] MEDS ORDERED: NS 1,000 ML IV ONE (17:45)
[2024-01-27 18:02] LABS: ALANINE AMINOTRANSFERASE 17 U/L (0-55); ALBUMIN 4.3 g/dL (3.5-5.0); ALKALINE PHOSPHATASE 45 U/L (40-150); ANION GAP 10 mmol/L (7-16); AST,SGOT 19 U/L (5-34); BILIRUBIN,TOTAL 0.2 mg/dL (0.2-1.2); BLOOD UREA NITROGEN 13 mg/dL (7-19); CALCIUM 9.3 mg/dL (8.4-10.2); CHLORIDE 109 mEq/L (98-107); CREATININE, serum 1.11 mg/dL (0.57-1.11); GLUCOSE 83 mg/dL (70-99); POTASSIUM 4.2 mEq/L (3.5-4.5); SODIUM 142 mEq/L (136-145); TOTAL PROTEIN 7.1 g/dl (6.2-8.1)
[2024-01-27 18:11] LABS: TROPONIN-I < 0.010 ng/mL (0.00-0.033)
[2024-01-27 19:18] LABS: COLLECTION METHOD CLEAN CATCH
[2024-01-27 19:54] LABS: PH 6.5 (5.0-8.5); URINE APPEARANCE CLEAR (CLEAR/HAZY); URINE BLOOD 3+ (NEGATIVE); URINE COLOR YELLOW (YELLOW); URINE GLUCOSE NEGATIVE (NEGATIVE); URINE KETONE TRACE (NEGATIVE); URINE NITRATE NEGATIVE (NEGATIVE); URINE PROTEIN(semi-quant) NEGATIVE (NEGATIVE); URINE UROBILINOGEN 0.2 E.U/dL (0.2-1.0)
[2024-01-27] MEDS ORDERED: Ketorolac 30 MG/ML VIAL IV ONE (20:15)
[2024-01-27] MEDS ORDERED: LORazepam 2 MG/ML 1 ML VIAL IV ONE (20:15)
[2024-01-27 21:30] VITALS: BP 135/92; PULSE 54
== END 2024-01-27 21:30 | disposition home or self-care (01) ==
LOC: COL.ER 15:30
PROVIDERS: Physician Assistant
DX: R00.2 Palpitations (principal)
CPT/HCPCS: J1885; J2060; J7030

== ENCOUNTER 2024-02-24 10:53 | Emergency (ER) | payer SELFPAY ==
[~2024-02-24] VITALS: Ht 162.6 cm; Wt 70.0 kg
[2024-02-24 11:08] VITALS: TEMP 98.6
[2024-02-24] MEDS ORDERED: Ondansetron 4 MG/2 ML VIAL IV ONE (12:45)
[2024-02-24] MEDS ORDERED: NS 1,000 ML IV ONE (12:45)
[2024-02-24 13:05] LABS: COLLECTION METHOD CLEAN CATCH
[2024-02-24 13:14] LABS: BASO % 0.5 % (0.0-2.0); EOS # 0.1 K/mm3 (0.0-0.7); EOS % 2.3 % (0.0-4.0); GRAN # 2.7 K/mm3 (1.4-6.5); GRAN % 60.6 % (42.2-75.2); LYMPH # 1.1 K/mm3 (1.2-3.4); LYMPH % 25.1 % (20.0-51.0); MEAN CELL VOLUME 96 fl (80.0-100.0); MEAN CORPUSCULAR HEMOGLOBIN 31 pg (27-31); MEAN CORPUSCULAR HGB CONC 33 g/dl (33.0-37.0); MEAN PLATELET VOLUME 10.5 fl (7.4-10.4); MONO # 0.5 K/mm3 (0.1-0.6); MONO % 11.5 % (1.7-9.3); PLATELET COUNT 238 K/mm3 (130-400); RED BLOOD COUNT 4.16 M/mm3 (4.10-5.30); REDCELL DISTRIBUTION WIDTH-CV 11.5 % (11.5-14.5)
[2024-02-24 13:16] LABS: URINE APPEARANCE CLEAR (CLEAR/HAZY); URINE BLOOD NEGATIVE (NEGATIVE); URINE COLOR YELLOW (YELLOW); URINE GLUCOSE NEGATIVE (NEGATIVE); URINE KETONE NEGATIVE (NEGATIVE); URINE NITRATE NEGATIVE (NEGATIVE); URINE PROTEIN(semi-quant) NEGATIVE (NEGATIVE); URINE UROBILINOGEN 0.2 E.U/dL (0.2-1.0)
[2024-02-24 13:30] LABS: ALBUMIN 4.2 g/dL (3.5-5.0); BILIRUBIN,TOTAL 0.4 mg/dL (0.2-1.2); CALCIUM 10.2 mg/dL (8.4-10.2); CREATININE, serum 0.71 mg/dL (0.57-1.11); POTASSIUM 4.2 mEq/L (3.5-4.5)
[2024-02-24] MEDS ORDERED: Loperamide 2 MG CAP PO ONE (13:45)
[2024-02-24 14:28] VITALS: BP 132/78; PULSE 92
== END 2024-02-24 14:33 | disposition home or self-care (01) ==
LOC: COL.ER 10:53
PROVIDERS: Physician Assistant
DX: U07.1 COVID-19 (principal); R51.9 Headache, unspecified; R19.7 Diarrhea, unspecified; R10.84 Generalized abdominal pain; R53.83 Other fatigue; R11.0 Nausea; R53.1 Weakness; Z87.891 Personal history of nicotine dependence; Z73.0 Burn-out
CPT/HCPCS: J2405; J7030

== ENCOUNTER 2024-03-05 10:01 | Emergency (ER) | payer SELFPAY ==
[~2024-03-05] VITALS: Ht 162.6 cm; Wt 72.7 kg
[2024-03-05 10:04] VITALS: TEMP 98
[2024-03-05] MEDS ORDERED: NS 1,000 ML IV ONE (10:30)
[2024-03-05 10:55] LABS: BASO # 0.1 K/mm3 (0.0-0.2); EOS # 0.1 K/mm3 (0.0-0.7); EOS % 1.9 % (0.0-4.0); GRAN # 5.1 K/mm3 (1.4-6.5); GRAN % 69.5 % (42.2-75.2); HEMATOCRIT 38.4 % (37.0-47.0); HEMOGLOBIN 12.8 g/dl (12.5-16.0); LYMPH # 1.4 K/mm3 (1.2-3.4); LYMPH % 18.7 % (20.0-51.0); MEAN CELL VOLUME 95 fl (80.0-100.0); MEAN CORPUSCULAR HEMOGLOBIN 32 pg (27-31); MEAN CORPUSCULAR HGB CONC 33 g/dl (33.0-37.0); MEAN PLATELET VOLUME 10.6 fl (7.4-10.4); MONO # 0.6 K/mm3 (0.1-0.6); MONO % 8.8 % (1.7-9.3); PLATELET COUNT 246 K/mm3 (130-400); RED BLOOD COUNT 4.03 M/mm3 (4.10-5.30); REDCELL DISTRIBUTION WIDTH-CV 11.8 % (11.5-14.5)
[2024-03-05 11:13] LABS: ALANINE AMINOTRANSFERASE 20 U/L (0-55); ALKALINE PHOSPHATASE 43 U/L (40-150); ANION GAP 10 mmol/L (7-16); AST,SGOT 16 U/L (5-34); BILIRUBIN,TOTAL 0.5 mg/dL (0.2-1.2); BLOOD UREA NITROGEN 10 mg/dL (7-19); CALCIUM 9.2 mg/dL (8.4-10.2); CHLORIDE 109 mEq/L (98-107); CREATININE, serum 0.72 mg/dL (0.57-1.11); GLUCOSE 99 mg/dL (70-99); POTASSIUM 4.3 mEq/L (3.5-4.5); SODIUM 140 mEq/L (136-145); TOTAL PROTEIN 6.9 g/dl (6.2-8.1)
[2024-03-05 11:23] LABS: TROPONIN-I < 0.010 ng/mL (0.00-0.033)
[2024-03-05 11:55] VITALS: BP 120/81; PULSE 51
== END 2024-03-05 12:01 | disposition home or self-care (01) ==
LOC: COL.ER 10:01
PROVIDERS: Personal Emergency Response Attendant
DX: R42 Dizziness and giddiness (principal); E86.0 Dehydration
CPT/HCPCS: J7030